=== PATIENT | female | born 1970 | race Caucasian/White ===

== ENCOUNTER 2019-09-18 10:01 | Emergency (ER) | payer BC ==
[2019-09-18 10:49] LABS: Influenza A Molecular Negative (Negative); Influenza B Molecular Negative (Negative)
[2019-09-18] MEDS ORDERED: Ketorolac INJ* 30 MG/ML 1 ML VIAL IV ONE (11:28)
[2019-09-18] MEDS ORDERED: NS 0.9% 1000 ML** 1,000 ML IV ONE (11:28)
[2019-09-18] MEDS ORDERED: Ondansetron INJ* 2 MG/ML VIAL IV ONE (11:28)
[2019-09-18 12:01] LABS: ABS Eosinophils 0.1 10^3/ul (0-0.6); ABS Lymphocytes 0.3 10^3/ul (1.0-4.8); ABS Monocytes 0.4 10^3/ul (0-0.8); ABS Neutrophils 7.6 10^3/ul (1.5-7.7); Eosinophil % 0.9 %; Hematocrit 41 % (35-47); Hemoglobin 14.2 g/dL (12.0-16.0); Lymphocyte % 3.2 %; Mean Corpuscular HGB Conc 35 g/dL (31-36); Mean Corpuscular Hemoglobin 30 pg (27-31); Mean Corpuscular Volume 87 fL (80-97); Mean Platelet Volume 7.1 fL (7.4-10.4); Platelet Count 265 10^3/uL (150-450); Red Blood Count 4.74 10^6 /uL (3.70-4.87); Red Cell Distribution Width 13 % (10-15); White Blood Count 8.4 10^3/uL (3.5-10.8)
[2019-09-18 12:27] LABS: Albumin 4.4 g/dL (3.2-5.2); Albumin/Globulin Ratio 1.6 (1-3); C Reactive Protein 6.86 mg/L (<8.01); Calcium 9.3 mg/dL (8.6-10.3); EGFR African American 91.9 (>60); EGFR Non-African American 75.9 (>60); Globulin 2.8 g/dL (2-4); Potassium 4.1 mmol/L (3.5-5.0); Total Bilirubin 0.6 mg/dL (0.2-1.0); Total Protein 7.2 g/dL (6.4-8.9)
[2019-09-18 13:45] VITALS: BP 124/73
--- NOTE | 2019-09-18 14:27 | ED ---
Influenza-Like Illness - HPI Summary HPI Summary: This patient is a 48-year-old otherwise healthy female who presents to the ED with symptoms of influenza-like illness. Patient states she was at work this morning when she began to feel nauseous and had diffuse joint aches. She then had an episode of vomiting. She also states she has been short of breath and feeling very weak when attempting to do little things. She did not improve, so came to the ED for evaluation. On arrival into DVT, the patient denies any vomiting at this time, however continues to endorse nausea. She also endorses fatigue. Denies any headache, dizziness, confusion, memory loss, rhinorrhea, cough or congestion. Denies any abdominal pain. She has not been sick recently , however has been around sick contacts. Takes no medications, denies allergies. - History of Current Complaint Chief Complaint: EDFluSymptoms Time Seen by Provider: 09/18/19 10:48 Hx Obtained From: Patient Onset/Duration: Sudden Onset Severity: Moderate Associated Signs & Symptoms: Myalgia Related Hx: Possible Flu/Infectious Exposure - Risk Factors Influenza Risk Factors: Negative - Allergy/Home Medications Allergies/Adverse Reactions: Allergies Allergy/AdvReac Type Severity Reaction Status Date / Time No Known Allergies Allergy Verified 09/18/19 10:19 Home Medications: Home Medications Dextroamphetamine/Amphetamine [Adderall Xr 20 mg Capsule] 20 mg PO DAILY [History Confirmed 09/18/19] Losartan TAB* [Cozaar TAB*] 50 mg PO DAILY 09/18/19 [History Confirmed 09/18/19] Metoprolol Succinate XL TAB* [Toprol XL TAB*] 25 mg PO DAILY 09/18/19 [History Confirmed 09/18/19] Ondansetron ODT TAB* [Zofran 4 MG Odt TAB*] 4 mg PO Q6H PRN #12 tab.odt MDD 4 [Rx] Sertraline* [Zoloft*] 150 mg PO DAILY 09/18/19 [History Confirmed 09/18/19] PMH/Surg Hx/FS Hx/Imm Hx Previously Healthy: Yes - Immunization History Hx Pertussis Vaccination: No Immunizations Up to Date: Yes Infectious Disease History: No Infectious Disease History: Denies: Traveled Outside the [place] in Last 30 Days - Social History Occupation: Employed Full-time Lives: With Family Alcohol Use: Rare Hx Substance Use: No Substance Use Type: Reports: None Smoking Status (MU): Former Smoker Review of Systems Negative: Fever, Chills, Fatigue, Skin Diaphoresis Negative: Palpitations, Chest Pain Negative: Shortness Of Breath, Cough Positive: Abdominal Pain, Vomiting, Nausea. Negative: Diarrhea Genitourinary: Negative Positive: no symptoms reported, see HPI Positive: Myalgia. Negative: Arthralgia Skin: Negative All Other Systems Reviewed And Are Negative: Yes Physical Exam Triage Information Reviewed: Yes Vital Signs On Initial Exam: Initial Vitals Temp Pulse Resp BP Pulse Ox 97.6 F 97 20 139/92 100 09/18/19 10:14 09/18/19 10:14 09/18/19 10:14 09/18/19 10:14 09/18/19 10:14 Vital Signs Reviewed: Yes Appearance: Positive: Well-Appearing, No Pain Distress, Well-Nourished Skin: Positive: Warm, Skin Color Reflects Adequate Perfusion Neck: Positive: Supple, Nontender, No Lymphadenopathy Respiratory/Lung Sounds: Positive: Clear to Auscultation, Breath Sounds Present Cardiovascular: Positive: RRR, Pulses are Symmetrical in both Upper and Lower Extremities Musculoskeletal: Positive: Normal, Strength/ROM Intact Neurological: Positive: Speech Normal Psychiatric: Positive: Normal, Affect/Mood Appropriate AVPU Assessment: Alert Procedures - Sedation Patient Received Moderate/Deep Sedation with Procedure: No Diagnostics - Vital Signs Vital Signs Temp Pulse Resp BP Pulse Ox 09/18/19 13:45 98.8 F 81 26 124/73 95 09/18/19 13:27 87 18 124/73 97 09/18/19 13:00 82 17 96 09/18/19 12:57 92 13 120/71 95 09/18/19 12:00 84 20 96 09/18/19 11:24 16 129/85 09/18/19 11:11 82 30 100 09/18/19 10:53 86 24 149/98 100 09/18/19 10:14 97.6 F 97 20 139/92 100 - Laboratory Lab Results: Lab Results 09/18/19 09/18/19 09/18/19 Range/Units 10:22 11:35 11:35 WBC 8.4 (3.5-10.8) 10^3/uL RBC 4.74 (3.70-4.87) 10^6 /uL Hgb 14.2 (12.0-16.0) g/dL Hct 41 (35-47) % MCV 87 (80-97) fL MCH 30 (27-31) pg MCHC 35 (31-36) g/dL RDW 13 (10-15) % Plt Count 265 (150-450) 10^3/uL MPV 7.1 L (7.4-10.4) fL Neut % (Auto) 90.4 % Lymph % (Auto) 3.2 % [place] % (Auto) 5.2 % Eos % (Auto) 0.9 % Baso % (Auto) 0.3 % Absolute Neuts (auto) 7.6 (1.5-7.7) 10^3/ul Absolute Lymphs (auto) 0.3 L (1.0-4.8) 10^3/ul Absolute Monos (auto) 0.4 (0-0.8) 10^3/ul Absolute Eos (auto) 0.1 (0-0.6) 10^3/ul Absolute Basos (auto) 0.0 (0-0.2) 10^3/ul Absolute Nucleated RBC 0.0 10^3/ul Nucleated RBC % 0.0 Sodium 137 (135-145) mmol/L Potassium 4.1 (3.5-5.0) mmol/L Chloride 101 (101-111) mmol/L Carbon Dioxide 27 (22-32) mmol/L Anion Gap 9 (2-11) mmol/L BUN 24 (6-24) mg/dL Creatinine 0.80 (0.51-0.95) mg/dL Est GFR ( Amer) 91.9 (>60) Est GFR (Non-Af Amer) 75.9 (>60) BUN/Creatinine Ratio 30.0 H (8-20) Glucose 119 H (70-100) mg/dL Lactic Acid (0.5-2.0) mmol/L Calcium 9.3 (8.6-10.3) mg/dL Total Bilirubin 0.60 (0.2-1.0) mg/dL AST 18 (13-39) U/L ALT 21 (7-52) U/L Alkaline Phosphatase 105 H (34-104) U/L C-Reactive Protein 6.86 (<8.01) mg/L Total Protein 7.2 (6.4-8.9) g/dL Albumin 4.4 (3.2-5.2) g/dL Globulin 2.8 (2-4) g/dL Albumin/Globulin Ratio 1.6 (1-3) Influenza A (Rapid) Negative (Negative) Influenza B (Rapid) Negative (Negative) 09/18/19 Range/Units 11:35 WBC (3.5-10.8) 10^3/uL RBC (3.70-4.87) 10^6 /uL Hgb (12.0-16.0) g/dL Hct (35-47) % MCV (80-97) fL MCH (27-31) pg MCHC (31-36) g/dL RDW (10-15) % Plt Count (150-450) 10^3/uL MPV (7.4-10.4) fL Neut % (Auto) % Lymph % (Auto) % [place] % (Auto) % Eos % (Auto) % Baso % (Auto) % Absolute Neuts (auto) (1.5-7.7) 10^3/ul Absolute Lymphs (auto) (1.0-4.8) 10^3/ul Absolute Monos (auto) (0-0.8) 10^3/ul Absolute Eos (auto) (0-0.6) 10^3/ul Absolute Basos (auto) (0-0.2) 10^3/ul Absolute Nucleated RBC 10^3/ul Nucleated RBC % Sodium (135-145) mmol/L Potassium (3.5-5.0) mmol/L Chloride (101-111) mmol/L Carbon Dioxide (22-32) mmol/L Anion Gap (2-11) mmol/L BUN (6-24) mg/dL Creatinine (0.51-0.95) mg/dL Est GFR ( Amer) (>60) Est GFR (Non-Af Amer) (>60) BUN/Creatinine Ratio (8-20) Glucose (70-100) mg/dL Lactic Acid 1.4 (0.5-2.0) mmol/L Calcium (8.6-10.3) mg/dL Total Bilirubin (0.2-1.0) mg/dL AST (13-39) U/L ALT (7-52) U/L Alkaline Phosphatase (34-104) U/L C-Reactive Protein (<8.01) mg/L Total Protein (6.4-8.9) g/dL Albumin (3.2-5.2) g/dL Globulin (2-4) g/dL Albumin/Globulin Ratio (1-3) Influenza A (Rapid) (Negative) Influenza B (Rapid) (Negative) Result Diagrams: 09/18/19 11:35 09/18/19 11:35 Lab Statement: Any lab studies that have been ordered have been reviewed, and results considered in the medical decision making process. Flu Symptom Course/Dx - Course Course Of Treatment: This patient's evaluated for influenza-like illness. Patient states she is feeling improved on arrival, however decreased to endorse some nausea. She is given nausea medication, fluids. Vital signs stable and patient remained afebrile. Labs obtained show normal white count and other labs are WWNL now. Influenza negative. On reexamination, patient states she feels improved. She denies any nausea, vomiting or any weakness at this time. She is OK for DC at this time. Likely viral syndrome. - Diagnoses Differential Diagnosis/HQI/PQRI: Positive: Other - nausea and vomiting Provider Diagnoses: Viral syndrome Discharge ED - Sign-Out/Discharge Documenting (check all that apply): Patient Departure - Discharge Plan Condition: Stable Disposition: HOME Prescriptions: Ondansetron ODT TAB* [Zofran 4 MG Odt TAB*] 4 mg PO Q6H PRN #12 tab.odt MDD 4 PRN Reason: Nausea Patient Education Materials: Acute Nausea and Vomiting (ED), Viral Syndrome (ED ) Forms: *Work Release Referrals: Saige Hancock [Primary Care Provider] - Additional Instructions: Zofran four times daily as needed Rest and fluids Out of work today and tomorrow If symptoms become worse, return to the ED - Billing Disposition and Condition Condition: STABLE Disposition: Home - Attestation Statements Provider Attestation: I was available for consultation for this patient. I did not evaluate the patient, or participate in any medical decision making or disposition decisions unless I am specifically named in the chart as having consulted on the patient. If I have consulted on the patient, please see my own ED note on the patient encounter. Shirley Smiley MD
== END 2019-09-18 13:45 | disposition home or self-care (01) ==
LOC: ED 10:01
DX: B34.9 Viral infection, unspecified (principal); R10.9 Unspecified abdominal pain; R11.2 Nausea with vomiting, unspecified; Z87.891 Personal history of nicotine dependence; Z79.899 Other long term (current) drug therapy
CPT/HCPCS: 36415; 80053; 83605; 85025; 86140; 96361; 96374; 96375; 99283; J1885; J2405